=== PATIENT | male | born 1975 | race Caucasian/White ===

== ENCOUNTER 2017-09-14 11:58 | Emergency (ER) | payer OTHER ==
[~2017-09-14] VITALS: Ht 165.1 cm; Wt 111.8 kg
[2017-09-14 13:22] VITALS: BP_SYST 162; BP_SYST 201; BP_DIAS 117
--- NOTE | 2017-09-14 13:32 | NUR ---
PER DR RAY PT SEND TO THE LOBBY; XRAY ORDERED
--- NOTE | 2017-09-14 13:50 | NUR ---
PATIENT AMBULATED TO ER OF CHAIR.
--- NOTE | 2017-09-14 13:58 | NUR ---
42M BIB SELF C/O 5/10 "SHARP" INTERMITTENT RT ANKLE PAIN RADIATING TO RIGHT MEDIAL LOWER X 2 WKS S/P FALL FROM A SNOWBOARD; SKIN AND CMS INTACT; LIMITED ROM TO RT ANKLE PT IS AOX4, RR ARE EVEN AND UNLABORED; NAD; ER MD AWARE OF PT STATUS.
[2017-09-14 14:10] VITALS: BP 178/100
--- NOTE | 2017-09-14 14:10 | NUR ---
Patient discharged with v/s stable. Written and verbal after care instructions given and explained. Patient alert, oriented and verbalized understanding of instructions. Ambulatory with steady gait. All questions addressed prior to discharge. ID band removed. Patient advised to follow up with PMD. Rx of VASOTEC given. Patient educated on indication of medication including possible reaction and side effects. Opportunity to ask questions provided and answered.
== END 2017-09-14 14:10 | disposition home or self-care (01) ==
LOC: MED 11:58
DX: S93.491A Sprain of other ligament of right ankle, initial encounter (principal); I10 Essential (primary) hypertension; X58.XXXA Exposure to other specified factors, initial encounter; Y93.89 Activity, other specified; Y92.89 Other specified places as the place of occurrence of the external cause; Y99.8 Other external cause status
CPT/HCPCS: 73610; 99284